=== PATIENT | female | born 1960 | race African-American/Black ===

== ENCOUNTER 2023-09-11 07:36 | Emergency (ER) | payer BC ==
[2023-09-11 08:18] VITALS: TEMP 97.7; BMI 41.8
[2023-09-11 09:52] LABS: HEMATOCRIT 38.3 % (32.4-45.2); HEMOGLOBIN 12.6 GM/dL (10.7-15.3); LYMPH % 29.9 % (8-40); MCHC 32.8 g/dl (32.0-36.0); MEAN CELL VOLUME 88.3 fl (80-96); MONO % 6.5 % (3.8-10.2); NEUT % 61.6 % (42.8-82.8); PLATELET COUNT 205 10^3/uL (134-434); RBC 4.34 M/mm3 (3.60-5.2); RDW 16.1 % (11.6-15.6); WHITE BLOOD COUNT 7.4 K/mm3 (4.0-10.0)
[2023-09-11 09:59] LABS: INR 1.07 (0.83-1.09); PROTHROMBIN TIME (PATIENT) 12.4 SEC (9.7-13.0)
[2023-09-11 10:01] LABS: ACTIVATED PTT 44.5 SECONDS (25.2-36.5)
[2023-09-11 10:08] LABS: POTASSIUM 4.4 mmol/L (3.5-5.1)
[2023-09-11 10:10] LABS: CALCIUM 9.2 mg/dL (8.5-10.1)
[2023-09-11 10:11] LABS: ALBUMIN 3.6 g/dl (3.4-5.0); BLOOD UREA NITROGEN 10.6 mg/dL (7-18)
[2023-09-11 10:14] LABS: CREATININE 0.7 mg/dL (0.55-1.3)
[2023-09-11 10:15] LABS: BILIRUBIN,TOTAL 0.6 mg/dL (0.2-1)
[2023-09-11 11:53] VITALS: BP 150/67; PULSE 53; RESP 18
== END 2023-09-11 12:02 | disposition home or self-care (01) ==
LOC: JER 07:36
DX: R60.0 Localized edema (principal)
CPT/HCPCS: 36415; 71045-TC-FY; 80053; 83880; 84484; 85025; 85610; 85730; 93005; 93010; 93970-TC; 99285-25